=== PATIENT | male | born 1995 | race African-American/Black ===

== ENCOUNTER 2018-06-09 18:44 | Emergency (ER) | payer BC, OTHER | END 2018-06-09 19:41 | disposition home or self-care (01) | LOC: FTE 18:44 | DX: S13.4XXA Sprain of ligaments of cervical spine, initial encounter (principal); F17.210 Nicotine dependence, cigarettes, uncomplicated; V49.50XA Passenger injured in collision with unspecified motor vehicles in traffic accident, initial encounter | CPT/HCPCS: 99283 ==